=== PATIENT | female | born 1960 | race Caucasian/White ===

== ENCOUNTER 2016-08-02 19:53 | Emergency (ER) | payer OTHER ==
[2016-08-02 20:06] VITALS: TEMP 98.6
--- NOTE | 2016-08-02 20:58 | EDPHY ---
H & P Time Seen by Provider: 08/02/16 20:30 HPI/ROS: CHIEF COMPLAINT: Bilateral hip pain, back pain HISTORY OF PRESENT ILLNESS: Patient's symptoms 1st started in February of 2016. She had foot surgery by Dr. Eckert in December of last year and initially thought her bilateral hip pain and back pain was due to her altered gait while healing. She saw Dr. North in early April and got bilateral hip injections but was noted to have "extra fluid in her hips" per Dr. North and was referred to electoral officer Dieudonne Sherstha. She had an MRI of her lower spine and some lab tests and was referred back to Dr. North. In May she was treated with Mobic and steroids and anti-inflammatories and started feeling better. Over the last 3 weeks she has tapered completely off the anti-inflammatories and is on natural supplements only. Today she woke up and had recurrent back pain and hip pain. Back pain is lumbar and radiates a little bit up into her thoracic area between her shoulder blades as well as down into both hips. This time however radiated down to both knees and she noticed very hyperesthetic skin in both thighs which was worse today at work but now better. No weakness or numbness in legs. No recent fall or trauma. No chest or abdominal pain. No shortness of breath and no arm symptoms. REVIEW OF SYSTEMS: Eye: no change in vision ENT: no sore throat Cardiac: no chest pain or syncope Pulmonary: no cough or SOB Abdomen: no vomiting, diarrhea, abdominal pain Musculoskeletal: HPI Skin: no rash Neuro: no headache Constitutional: no fever : no urinary symptoms, no incontinence A comprehensive 10 point review of systems is otherwise negative aside from elements mentioned in the history of present illness. 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 Eyes: No scleral icterus. ENT, Mouth: Normal mucous membranes. Respiratory: Normal respiratory effort, breath sounds equal, lungs are clear to auscultation. Full sentences. Cardiovascular: Regular rate and rhythm. Gastrointestinal: Abdomen is soft and non tender. Neurological: Alert and oriented x3. Normally conversant. Face symmetric, normal movement and sensation in all extremities. Patellar reflexes 1+ and symmetric, toes downgoing bilaterally, no clonus. Ambulatory. Skin: Warm and dry, no rashes. No skin changes including none over the back or over her thighs. Musculoskeletal: She does have some paraspinal muscle tenderness in the thoracic and lumbar area more on the right than the left. Normal range of motion of both hips. No joint swelling in the knees. Psychiatric: Not agitated. She is anxious and a bit scared about her recurrence of symptoms. Emergency Department course/MDM: I do not think this likely represents an acute vascular problem such as pulmonary embolism or ACS or dissection. This is definitely a recurrence of her previous symptoms in terms of her back and hip pain, which new is that it radiates into her knees and thighs with some hyperesthetic skin over that area. Discussed with Jeff for Dr. North. Attempt is made contact her electoral officer and Dr. North; Albertodery [id number]. Had positive B27 antigen. Recommends Mobic and Gabapentin. 2204: Discussed with the patient. She would not like to start gabapentin as it did not work well for her in the past. She did have success with hot packs and heating pad. We discussed restarting Mobic, Percocet, heating pad, and follow up with either Dr. North or Dr. Shrestha within the next week. I emphasized the patient that I do not have a definitive diagnosis for her tonight. I do think she is safe for discharge and outpatient management. Encouraged her to follow up as noted above. Smoking Status: Never smoked Constitutional: Initial Vital Signs Temperature (C) 37 C 08/02/16 20:02 Heart Rate 90 08/02/16 20:02 Respiratory Rate 16 08/02/16 20:02 Blood Pressure 112/73 08/02/16 20:02 O2 Sat (%) 95 08/02/16 20:02 O2 Delivery Mode Room Air Allergies/Adverse Reactions: No Known Allergies Allergy (Verified 08/02/16 20:02) Home Medications: Medication Instructions Recorded Ibuprofen 600 mg PO PRN 11/26/15 Meloxicam [Mobic 15 mg] 15 mg PO DAILY #11 tablet 08/02/16 oxyCODONE/APAP 5/325 [Percocet] 1 - 2 tab PO Q4-6PRN PRN #11 tab 08/02/16 MDM/Departure - MDM Medications Given: Discontinued Medications Oxycodone/Acetaminophen (Percocet 5/325mg Prepack#4) 1 btl [facility] ONE Stop: 08/02/16 22:14 Last Admin: 08/02/16 22:43 Dose: 1 btl - Depart Disposition: Home, Routine, Self-Care Clinical Impression: Back pain Qualifiers: Back pain location: back pain in unspecified location Chronicity: acute Back pain laterality: bilateral Qualified Code(s): M54.9 - Dorsalgia, unspecified Condition: Good Instructions: Acute Low Back Pain (ED) Prescriptions: Meloxicam [Mobic 15 mg] 15 mg PO DAILY #11 tablet oxyCODONE/APAP 5/325 [Percocet] 1 - 2 tab PO Q4-6PRN PRN #11 tab PRN Reason: Pain Referrals: Christina Bernard MD [Primary Care Provider] - As per Instructions [place] Shrestha MD [Medical Doctor] - As per Instructions Nuha North [Medical Doctor] - As per Instructions
[2016-08-02] MEDS ORDERED: OXYCODONE/APAP 5/325MG PREPACK#4 BTL TAKEHOME ONE ×2 (22:13→22:41)
[2016-08-02 22:52] VITALS: BP 126/84; PULSE 88; RESP 18; O2SAT 93
== END 2016-08-02 22:51 | disposition home or self-care (01) ==
DX: M54.9 Dorsalgia, unspecified (principal)